=== PATIENT | female | born 1965 | race Caucasian/White ===

== ENCOUNTER 2017-01-11 11:20 | Day surgery (SDC) | payer OTHER ==
[~2017-01-11] VITALS: Ht 165.1 cm; Wt 90.0 kg
[~2017-01-11 11:20] MED LIST: CHOL40003 PO; HYDR25TA4 PO; MULT-666 PO; Sodium Chloride LOK Flush 10 mL Syringe IV PRN; VENL75TA87 PO; fentaNYL-PF 50 mCg/mL 2 mL Inj IVPUSH PRN
[2017-01-11 12:11] VITALS: BP 143/82; PULSE 73; RESP 16; O2SAT 99
[2017-01-11] MEDS: 0.9% Sodium Chloride 1,000 ML IV PRN ×4 (12:18→14:10)
[2017-01-11 14:19] VITALS: BP 135/87; PULSE 74; RESP 16; O2SAT 100
--- NOTE | 2017-01-11 14:19 | PCM.ENDCOL ---
Colonoscopy Date of Service: Jan 11, 2017 Physician Oscar Smith MD Pre Procedure Diagnosis: Screening Post Procedure Dx & Findings: Polyps and hemorrhoids Procedure Colonoscopy Prep adequate Withdrawal time 20 minutes After unremarkable rectal examination the Olympus video colonoscope was inserted patient's anal canal and was advanced to cecum. Landmarks were identified including the ileocecal valve and appendiceal orifice. Scope was withdrawn systematically. Visualized colonic mucosa showed healthy shiny mucosa with normal healthy-appearing vasculature. In the ascending colon, there was a 25 mm polyp. This was flat. Injected with normal saline with successful lift. Resected completely using hot snare in a piecemeal fashion. 3 resolution clip was deployed. We tattooed the area 2 mL. There was another linear polyp which was removed completely using cold snare. In the ascending colon there was another 30 mm polyp flat injected with normal saline with successful left. Resected completely using hot snare in a piecemeal fashion. 4 resolution clips deployed. 2 mL tattoos. In the rectum retroflexion was done which showed hemorrhoids. Anal canal was inspected carefully on the way out and hemorrhoids noted. Impression Polyps 3 status post complete removal Recommendation Repeat colonoscopy 6 months Presedation Assessment Risks and Benefits Informed consent was obtained from the patient after all risks and benefits including but not limited to drug reaction, infection, pain, bleeding, perforation, as well as alternatives were discussed. Patient monitoring Continuous pulse oximetry, cardiac monitoring, blood pressure monitoring, IV access, and oxygen at 2L per nasal cannula. Periprocedural Fentanyl: Fentanyl 125mcg Incrementally Midazolam: Midazolam 5mg Incrementally Complications There were no periprocedural complications identified. Post Procedure Plan Post Procedure Recommendations 1. Restrict activities today. 2. Resume normal activities in the morning. 3. Resume medications. 4. Patient informed of normal post procedure side effects as bloating, drowsiness, blood streaking in the stool. 5. average risk CRCS. If colon polyps come back as: -Hyperplastic- can repeat colonoscopy in 10 years -Tubular adenoma- repeat colonoscopy in 5 years -Tubulovillous/villous adenoma- repeat colonoscopy in 3 years -If any dysplasia- return to clinic as soon as possible 6. Please don't hesitate to call me with any questions. Oscar Smith MD Jan 11, 2017 14:19
[2017-01-11 14:27] VITALS: BP 141/63; PULSE 74; RESP 16; O2SAT 99
[2017-01-11 14:33] VITALS: BP 167/95; PULSE 78; RESP 16; O2SAT 100
--- NOTE | 2017-01-13 13:16 | PATH ---
SURGICAL PATHOLOGY Attending Physician:Oscar Smith M.D. CASE STATUS: Signed Out PATIENT NAME: ALOK MARINELLI PID: [id number] : 1965 DATE COLLECTED:01/11/2017 00:00 SPECIMEN: Colon, Biopsy CLINICAL HISTORY: 1). 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 ICD10 CODE D12.2 GROSS DESCRIPTION: The specimen is received in one formalin filled container labeled with the patient's name, sublabeled "ascending colon polyps X3" and consists of multiple portions of tissue which aggregate to 1.5 x 1.0 x 0.3 CM. The specimen is entirely submitted in one cassette. 01/12/2017 [facility] MICRO DESCRIPTION: See diagnosis. ICD-9 CODES: CPT CODES: 1: 91714 Electronically Signed Out Dewayne Lew MD [facility] [address], [place] [address] Technical component performed at [facility], [address] [place] [address] Ave[address], [place], [address]
== END 2017-01-11 23:59 | disposition home or self-care (01) ==
LOC: END 11:20
PROVIDERS: ATTEND Internal Medicine
DX: Z12.11 Encounter for screening for malignant neoplasm of colon (principal); D12.2 Benign neoplasm of ascending colon; K59.00 Constipation, unspecified; K64.8 Other hemorrhoids; Z79.899 Other long term (current) drug therapy
CPT/HCPCS: 45381; 45385; 99153; G0500; J2250; J3010; J7030

== ENCOUNTER → 2017-06-20 | Day surgery (SDC) | payer OTHER ==
[~2017-06-20] VITALS: Ht 165.1 cm; Wt 90.7 kg
[~2017-06-20] MED LIST changes: +DICL100G8 TOPICAL
[2017-06-20 11:33] VITALS: BP 137/67; PULSE 79; RESP 16; O2SAT 98
[2017-06-20] MEDS: 0.9% Sodium Chloride 1,000 ML IV PRN ×2 (11:35→12:28)
--- NOTE | 2017-06-20 12:45 | PCM.ENDCOL ---
Colonoscopy Date of Service: Jun 20, 2017 Physician Oscar Smith MD Pre Procedure Diagnosis: Follow-up for a polyp Post Procedure Dx & Findings: Polyp hemorrhoids residual polyp Procedure Colonoscopy PROCEDURE IN DETAIL: Prep adequate Withdrawal time 16 minutes After unremarkable rectal examination the Olympus video colonoscope was inserted patient's anal canal and was advanced to cecum. Landmarks were identified including the ileocecal valve and appendiceal orifice. Scope was withdrawn systematically. Visualized colonic mucosa showed healthy shiny mucosa with normal healthy-appearing vasculature. In the ascending colon there were total of 2 polyps. One was about 6-7 mm in size which was removed completely using cold snare. The other one was 1 mm in size which was removed completely using cold forceps. In the ascending colon, tattoo was noted. Scarring noted and a prior polypectomy site. Possible residual polyp noted. This was all resected completely using cold snare. In the rectosigmoid junction, there was a 1 mm polyp which was removed completely using cold forceps. In the rectum retroflexion was done which showed hemorrhoids. Anal canal was inspected carefully on the way out and hemorrhoids noted. Impression Residual polyp. Next Colonoscopy will depend on what this residual polyp shown. Polyp 3 status post complete removal Hemorrhoids Recommendation Repeat colonoscopy will depend on the histology of the residual polyp Presedation Assessment Risks and Benefits Informed consent was obtained from the patient after all risks and benefits including but not limited to drug reaction, infection, pain, bleeding, perforation, as well as alternatives were discussed. Patient monitoring Continuous pulse oximetry, cardiac monitoring, blood pressure monitoring, IV access, and oxygen at 2L per nasal cannula. Periprocedural Fentanyl: Fentanyl 125mcg Incrementally Midazolam: Midazolam 5mg Incrementally Complications There were no periprocedural complications identified. Post Procedure Plan Post Procedure Recommendations 1. Restrict activities today. 2. Resume normal activities in the morning. 3. Resume medications. 4. Patient informed of normal post procedure side effects as bloating, drowsiness, blood streaking in the stool. 5. average risk CRCS. If colon polyps come back as: -Hyperplastic- can repeat colonoscopy in 10 years -Tubular adenoma- repeat colonoscopy in 5 years -Tubulovillous/villous adenoma- repeat colonoscopy in 3 years -If any dysplasia- return to clinic as soon as possible 6. Please don't hesitate to call me with any questions. Oscar Smith MD Jun 20, 2017 12:45
[2017-06-20 12:50] VITALS: BP 159/79; PULSE 76; O2SAT 100
[2017-06-20 13:00] VITALS: BP 136/64; PULSE 68; O2SAT 98
[2017-06-20 13:10] VITALS: BP 141/99; PULSE 76; O2SAT 100
--- NOTE | 2017-06-21 14:00 | PATH ---
SURGICAL PATHOLOGY Attending Physician:Oscar Smith M.D. CASE STATUS: Signed Out PATIENT NAME: ALOK MARINELLI PID: [id number] : 1965 DATE COLLECTED:06/20/2017 18:52 SPECIMEN: 1: Colon, Polyp 2: Colon, Polyp 3: Colon, Polyp CLINICAL HISTORY: 1). ASCENDING COLON POLYPS 2). ASCENDING COLON POLYP (POSSIBLE RESIDUAL FROM PREVIOUS POLYPECTOMY) 3). RECTOSIGMOID POLYP FINAL DIAGNOSIS: 1.ASCENDING COLON POLYPS, BIOPSY: - T UBULAR ADENOMA IN 1 OF 2 FRAGMENTS. - SESSILE SERRATED ADENOMA IN 1 OF 2 FRAGMENTS. 2.ASCENDING COLON POLYP (POSSIBLE RESIDUAL FROM PREVIOUS POLYPECTOMY), BIOPSY: - FRAGMENTS OF SESSILE SERRATED ADENOMA. 3.RECTOSIGMOID POLYP, BIOPSY: - HYPERPLASTIC POLYP. ICD10 D12.6 NOTE: As part of a routine quality measurement specialist, Dr. Basilio Mendez has also reviewed this case and agrees with the interpretation. GROSS DESCRIPTION: The specimen is received in three formalin filled containers labeled with the patient's name. 1). The specimen is labeled "ascending colon polyps" and consists of 2 portions of tissue which aggregate to 0.7-0.5 x 0.4 CM. The specimen is entirely submitted in cassette 1A. 2). The specimen is labeled "possible residual polyp ascending" and consists of multiple portions of tissue which aggregate to 0.7 x 0.4 x 0.2 CM. The specimen is entirely submitted in cassette 2A. 3). The specimen is labeled "rectosigmoid polyp" and consists of a 0.3 x 0.3 x 0.2 CM portion of tissue which is entirely submitted in cassette 3A. 06/20/2017DC MICRO DESCRIPTION: See diagnosis. ICD-9 CODES: CPT CODES: 1: 57267 2: 34042 3: 68070 Electronically Signed Out Avelino Peace MD [facility] [address], [place] [address] Technical component performed at [facility], [address], [place], [address]
== END | disposition home or self-care (01) ==
LOC: END 00:13
PROVIDERS: ATTEND Internal Medicine
DX: D12.2 Benign neoplasm of ascending colon (principal); K63.5 Polyp of colon; K64.8 Other hemorrhoids; Z86.010 Personal history of colon polyps; I10 Essential (primary) hypertension; R01.1 Cardiac murmur, unspecified; F41.8 Other specified anxiety disorders
CPT/HCPCS: 45385; 99153; G0500; J2250; J3010; J7030